=== PATIENT | female | born 1985 | race Caucasian/White ===

== ENCOUNTER → 2022-05-18 12:53 | Outpatient (CLI) | payer OTHER, MEDICAID, SELFPAY ==
--- NOTE | 2022-05-18 12:59 | DI.RAD.S_ITS ---
PROCEDURE: XR KUB INDICATIONS: Essential Hypertention TECHNIQUE: One view of the abdomen acquired. COMPARISON: None. FINDINGS: Surgical changes and devices: Surgical clips are seen in the right upper quadrant. Bowel: Bowel gas pattern is normal. Soft tissues: No suspicious abdominal calcifications. Visualized solid organ contours appear normal in size. Bones: No suspicious bony lesions. IMPRESSION: Nonobstructive bowel gas pattern. Dictated by: Barrington Fuller M.D. on 05/18/2022 at 14:15 Approved by: Barrington Fuller M.D. on 05/18/2022 at 14:17
== END ==
PROVIDERS: Referring Provider Family Medicine; Visit Provider Family Medicine
DX: I10 Essential (primary) hypertension (principal)
CPT/HCPCS: 74018

== ENCOUNTER 2025-01-15 06:55 | Emergency (ER) | payer SELFPAY ==
[2025-01-15] VITALS (11 sets, daily range): BP systolic 130–211; BP diastolic 67–106; PULSE 56–73; RESP 20–22; TEMP 36.6–37; O2SAT 95–99; BMI 34.7
[2025-01-15 07:33] LABS: Add Manual Diff / Slide Review NO; Basophils Absolute Auto 100 /uL (0-100); Basophils Percent Auto 0.6 % (0-2); Eosinophils Absolute Auto 100 /uL (0-450); Eosinophils Percent Auto 0.5 % (2-4); Hematocrit 45.7 % (36-46); Hemoglobin 16.3 g/dL (12.0-16.0); Lymphocytes Absolute Auto 2400 /uL (1100-4500); Lymphocytes Percent Auto 17.1 % (25-40); Mean Corpuscular HGB Conc 35.6 % (30-36); Mean Corpuscular Hemoglobin 31.2 PG (26-34); Mean Corpuscular Volume 87.6 fL (80-100); Monocytes Absolute Auto 600 /uL (0-900); Monocytes Percent Auto 4.6 % (3-14); Neutrophils Absolute Auto 10700 /uL (1500-7000); Neutrophils Percent Auto 77.2 % (50-75); Platelet Count 167 X10^3/uL (150-400); Red Blood Cell Count 5.22 X10^6/uL (4.0-5.2); White Blood Cell Count 13.9 X10^3/uL (4.5-11.0)
[2025-01-15 07:40] LABS: Alanine Aminotransferase 36 IU/L (<35); Albumin 5.1 g/dL (3.5-5.0); Albumin Globulin Ratio 1.5 (1.0-2.8); Alkaline Phosphatase 83 U/L (38-126); Aspartate Aminotransferase 41 IU/L (14-36); BUN Creatinine Ratio 23.1 (6-22); Blood Urea Nitrogen 15 mg/dL (7-17); Calcium 9.5 mg/dL (8.4-10.2); Carbon Dioxide 21 mmol/L (22-32); Chloride 103 mmol/L (98-107); Estimated Glomerular Filt Rate > 60 mL/min (>60); Globulin 3.3 g/dL (1.7-4.1); Glucose 115 mg/dL (70-99); HEMOLYSIS < 15 (0-50); Lipase 52 U/L (23-300); Potassium 3.9 mmol/L (3.4-5.1); Sodium 135 mmol/L (137-145); Total Protein 8.4 g/dL (6.3-8.2)
[2025-01-15 07:42] LABS: Urine Volume 10mL (spun)
[2025-01-15 07:48] LABS: Bacteria Urine None Seen; Culture Indicated Urine Cult Not Indicated; RBC Urine 1-5/HPF (0-5/HPF); Squamous Epithelial Cell Urine 1-5 /HPF (0-5/HPF); WBC Urine None Seen (0-5/HPF)
--- NOTE | 2025-01-15 07:48 | DI.CT.S_ITS ---
PROCEDURE: CT ABDOMEN PELVIS W CON INDICATIONS: abd pain generalized and leukocytosis TECHNIQUE: After the administration of intravenous contrast, axial sections acquired from the lung bases to the pubic symphysis. Coronal and sagittal reformats were performed. For radiation dose reduction, the following was used: automated exposure control, adjustment of mA and/or kV according to patient size. COMPARISON: None. FINDINGS: Image quality: Diagnostic. Lower Chest: No significant findings. ABDOMEN: Liver: No solid mass. Gallbladder: Absent Biliary ducts: No biliary dilation. Pancreas: No ductal dilation. Spleen: Size is within normal limits. Adrenal Glands: No adrenal nodules. Kidneys and Ureters: No hydronephrosis. No solid mass. No complex renal cystic lesion which requires follow up. Stomach and Bowel: Normal colonic caliber, without significant wall thickening. Peritoneum: No abnormal intraperitoneal fluid. No free air. Ventral Wall: No significant ventral hernia. Abdominal Nodes: No retroperitoneal or mesenteric adenopathy by size criteria. Vessels: Aorta and inferior vena cava are normal in size. PELVIS: Pelvic Organs: IUD. Otherwise unremarkable. Bladder: No bladder wall thickening, accounting for underdistention. Pelvic Nodes: No enlarged lymph nodes. Miscellaneous: No inguinal hernias are seen. Bones: No aggressive osseous abnormality. IMPRESSION: 1. No acute process identified. 2. Remote cholecystectomy. 3. IUD. Dictated by: Anish Fortune M.D. on 01/15/2025 at 8:57 Approved by: Anish Fortune M.D. on 01/15/2025 at 9:01
--- NOTE | 2025-01-15 07:48 | DI.CT.S_ITS ---
PROCEDURE: CT HEAD/BRAIN WO CON INDICATIONS: headache, new onset TECHNIQUE: Noncontrast 4.5 mm thick angled axial sections acquired from the foramen magnum to the vertex, with coronal and sagittal reformats. For radiation dose reduction, the following was used: automated exposure control, adjustment of mA and/or kV according to patient size. COMPARISON: None. FINDINGS: Image quality: Diagnostic. CSF spaces: Basal cisterns are patent. No extra-axial fluid collections. Ventricles are normal in size and shape. Brain: No midline shift. No intracranial mass effect or hemorrhage. Ewing-white matter interface is normal. Skull and face: Calvarium and visualized facial bones are intact, without suspicious lesions. Sinuses: Visualized sinuses and mastoids are clear. IMPRESSION: No acute intracranial pathology. Dictated by: Anish Fortune M.D. on 01/15/2025 at 8:50 Approved by: Anish Fortune M.D. on 01/15/2025 at 8:56
[2025-01-15] MEDS: ACETAMINOPHEN 325 MG TABLET 975 MG PO (07:55)
[2025-01-15 08:32] LABS: Ictotest Urine Negative (Negative)
--- NOTE | 2025-01-15 08:33 | ED_ITS ---
HPI - Abdominal Pain General Chief Complaint: Abdominal Pain Stated Complaint: Right side pain , head hurts X 1 day Time Seen by Provider: 01/15/25 07:04 Source: patient Mode of arrival: Ambulatory History of Present Illness HPI narrative: This is a 39-year-old female with a history of prior cholecystectomy presenting with intermittent right upper quadrant and right flank pain, generalized abdominal discomfort, nausea headache and diarrhea. This is her 2nd day of symptoms. She has not had fevers although she says she feels fatigued. She does not have urinary symptoms. Says she woke up with a headache yesterday, it was not sudden in onset although she does have a family history of cerebral aneurysm with her Maternal grandfather. Patient History Social History Smoking Status: Current every day smoker Smoking Status: Current every day smoker Exam Narrative Exam Narrative: Noted to be hypertensive at triage, systolic is 152 on my exam Initial Vital Signs Initial Vital Signs: Vital Signs Temperature 97.9 F 01/15/25 07:00 Pulse Rate 73 01/15/25 07:00 Respiratory Rate 22 01/15/25 07:00 Blood Pressure 211/106 H 01/15/25 07:00 Pulse Oximetry 99 01/15/25 07:00 Oxygen Delivery Method Room Air 01/15/25 07:00 Const Other: appears to be in no distress HENMT HENMT Other: normocephalic atraumatic not photophobic Eyes Other: pupils are equal and reactive extraocular movements Neck Other: supple Resp Other: lungs are clear Cardio Other: regular rhythm rate no murmur rub or gallop GI Other: normal bowel sounds soft, mild generalized tenderness no guarding no rebound no organomegaly and no Skin Other: warm and dry Neuro Other: alert fully oriented without focal deficit Course Orders Ordered: ED Orders 01/15/25 07:13 CBC Auto Diff [Complete Blood Count AUTO DIFF] Stat CMP [Comprehensive Metabolic Panel] Stat Lipase Stat 01/15/25 07:32 Ictotest Urine Stat Urine Microscopic Stat 01/15/25 07:48 CT abdomen pelvis w con Stat CT head/brain wo con Stat Discontinued Medications Acetaminophen (Acetaminophen 325 Mg Tablet) 975 mg PO NOW ONE Stop: 01/15/25 07:49 Last Admin: 01/15/25 07:55 Dose: 975 mg Documented By: MPO Vital Signs Vital signs: Vital Signs - 8 hr 01/15/25 07:00 01/15/25 07:11 01/15/25 07:30 Temperature 97.9 F Pulse Rate 73 65 68 Respiratory Rate 22 Blood Pressure 211/106 H Pulse Oximetry 99 96 99 Oxygen Delivery Method Room Air 01/15/25 07:32 01/15/25 07:32 01/15/25 08:12 Temperature Pulse Rate 62 64 Respiratory Rate Blood Pressure 156/69 H Pulse Oximetry 98 95 Oxygen Delivery Method 01/15/25 08:13 01/15/25 08:13 01/15/25 08:30 Temperature Pulse Rate 64 Respiratory Rate Blood Pressure 161/80 H 138/75 Pulse Oximetry 99 Oxygen Delivery Method 01/15/25 08:30 01/15/25 09:00 01/15/25 09:00 Temperature Pulse Rate 56 L 59 L Respiratory Rate Blood Pressure 130/74 Pulse Oximetry 98 97 Oxygen Delivery Method 01/15/25 09:30 01/15/25 09:31 01/15/25 09:31 Temperature Pulse Rate 68 Respiratory Rate Blood Pressure 155/85 H Pulse Oximetry 97 97 Oxygen Delivery Method MDM - Abdominal Pain Lab Data Lab results narrative: Other than a mild leukocytosis, CBC with diff CMP and lipase are unremarkable. Urinalysis does not suggest infection or ureteral stone. 01/15/25 07:13 01/15/25 07:13 Labs: Lab Results 01/15/25 01/15/25 Range/Units 07:13 07:32 WBC 13.9 H (4.5-11.0) X10^3/uL RBC 5.22 H (4.0-5.2) X10^6/uL Hgb 16.3 H (12.0-16.0) g/dL Hct 45.7 (36-46) % MCV 87.6 (80-100) fL MCH 31.2 (26-34) PG MCHC 35.6 (30-36) % RDW 14.0 (11.6-14.8) % Plt Count 167 (150-400) X10^3/uL Neut % (Auto) 77.2 H (50-75) % Lymph % (Auto) 17.1 L (25-40) % [place] % (Auto) 4.6 (3-14) % Eos % (Auto) 0.5 L (2-4) % Baso % (Auto) 0.6 (0-2) % Neut # (Auto) 60848 H (5189-5963) /uL Lymph # (Auto) 2400 (7638-2557) /uL [place] # (Auto) 600 (0-900) /uL Eos # (Auto) 100 (0-450) /uL Baso # (Auto) 100 (0-100) /uL Sodium 135 L (137-145) mmol/L Potassium 3.9 (3.4-5.1) mmol/L Chloride 103 (98-107) mmol/L Carbon Dioxide 21 L (22-32) mmol/L BUN 15 (7-17) mg/dL Creatinine 0.65 (0.52-1.04) mg/dL Estimated GFR > 60 (>60) mL/min BUN/Creatinine Ratio 23.1 H (6-22) Glucose 115 H (70-99) mg/dL Calcium 9.5 (8.4-10.2) mg/dL Total Bilirubin 1.0 (0.2-1.3) mg/dL AST 41 H (14-36) IU/L ALT 36 H (<35) IU/L Alkaline Phosphatase 83 (38-126) U/L Total Protein 8.4 H (6.3-8.2) g/dL Albumin 5.1 H (3.5-5.0) g/dL Globulin 3.3 (1.7-4.1) g/dL Albumin/Globulin Ratio 1.5 (1.0-2.8) Lipase 52 (23-300) U/L Ur Bilirubin Confirm Negative (Negative) Urine RBC 1-5/hpf (0-5/HPF) Urine WBC None seen (0-5/HPF) Ur Squamous Epith Cells 1-5 /hpf (0-5/HPF) Urine Bacteria None seen (None) Ur Culture Indicated? Cult not indicated Vol Urine Centrifuged 10ml (spun) Point of care testing: Point of Care Testing Test Results Negative Urine Dip Bedside Urine Glucose Negative Bedside Urine Bilirubin + 1 Bedside Urine Ketone ++ 40 Urine Specific [place] 1.020 Bedside Urine Occult Blood +++ Bedside Urine pH 6.0 Bedside Urine Protein ++ 100 Bedside Urine Urobilinogen - Negative Bedside Urine Nitrite - Negative Bedside Urine Leukocytes - Negative Esterase Imaging Data CT scan - head: My Impression: independently reviewed CT head, no acute findings Radiologist's Impression: radiology report reviewed, no acute CT scan - abdomen/pelvis: My Impression: independent reviewed CT abdomen pelvis, no acute findings Radiologist's Impression: radiology report reviewed, no acute MDM Narrative Medical decision making narrative: 39-year-old female complaining of headache without red flag features although there is a family history noted of cerebral aneurysm and generalized abdominal pain associated with some diarrhea. Mentation did not suggest cerebral aneurysm, she does not have meningeal signs I do not think this is meningitis, CT is negative no though less sensitive for hemorrhage in the setting given presentation that is not highly suggestive of aneurysmal bleeding I do not think further workup is indicated at this point. With respect to her abdominal pain, does not have evidence for pyelonephritis ureteral stone pancreatitis choledocholithiasis or bowel obstruction. Patient overall appears well although mild leukocytosis noted this is nonspecific. Recommend discharge to home with symptomatic care. Discharge Plan Departure Patient Disposition: Home Clinical Impression: Headache Qualifiers: Headache type: unspecified Headache chronicity pattern: acute headache I ntractability: not intractable Qualified Code(s): R51.9 - Headache, unspecified Abdominal pain Qualifiers: Abdominal location: generalized Qualified Code(s): R10.84 - Generalized abdominal pain Activity Restrictions/Additional Instructions: no serious cause for headache and abdominal pain is identified today. I think he likely of a viral illness and it was safe to go home. Get adequate fluids you can use Tylenol and or ibuprofen as needed for abdominal pain and headache. If you are having increasing abdominal pain, fevers, bloody diarrhea or other acute symptoms recheck in the emergency department. Make an appointment for a recheck with your primary care provider soon. Stand Alone Forms: Patient Portal/API/Survey
== END 2025-01-15 10:36 | disposition home or self-care (01) ==
PROVIDERS: Emergency Provider Emergency Medicine
DX: R51.9 Headache, unspecified (principal); R10.84 Generalized abdominal pain; R11.0 Nausea; R19.7 Diarrhea, unspecified
CPT/HCPCS: 36415; 70450; 74177; 80053; 81003; 81015; 81025; 83690; 85025; 99284; Q9967